=== PATIENT | male | born 1985 | race Caucasian/White ===

== ENCOUNTER 2020-10-01 00:23 | Emergency (ER) | payer SELFPAY ==
[~2020-10-01] VITALS: Ht 172.7 cm; Wt 85.3 kg
[2020-10-01 00:28] VITALS: Ht 172.7 cm; Wt 85.3 kg
[2020-10-01 01:34] VITALS: BP 114/67
== END 2020-10-01 01:34 | disposition home or self-care (01) ==
LOC: ED 00:23
DX: T15.02XA Foreign body in cornea, left eye, initial encounter (principal); F17.210 Nicotine dependence, cigarettes, uncomplicated; Z71.6 Tobacco abuse counseling; W45.8XXA Other foreign body or object entering through skin, initial encounter; Y93.89 Activity, other specified; Y92.89 Other specified places as the place of occurrence of the external cause; Y99.8 Other external cause status
CPT/HCPCS: 90715; 99406

== ENCOUNTER 2020-11-08 20:26 | Emergency (ER) | payer SELFPAY ==
[~2020-11-08] VITALS: Ht 182.9 cm; Wt 222.7 kg
[2020-11-08 21:19] VITALS: Ht 182.9 cm; Wt 222.7 kg
[2020-11-09 00:56] LABS: BASOPHIL % 0.3 % (0-2); PLATELET COUNT 331 x10^3mcL (130-400)
[2020-11-09 01:01] LABS: CALCIUM 8.8 mg/dL (8.5-10.1); CARBON DIOXIDE 32.9 mmol/L (21-32); CREATININE SERUM 1.6 mg/dL (0.7-1.3); POTASSIUM SERUM 5.1 mmol/L (3.5-5.1)
[2020-11-09 01:06] LABS: ALBUMIN 3.4 g/dL (3.4-5.0); BILIRUBIN TOTAL 0.54 mg/dL (0.20-1.00); TOTAL PROTEIN, SERUM 8.1 g/dL (6.4-8.2)
[2020-11-09 01:19] LABS: RED CELL DISTRIBUTION WIDTH 16.7 % (11.5-14.5)
[2020-11-09 01:49] VITALS: BP 132/76
== END 2020-11-09 01:49 | disposition home or self-care (01) ==
LOC: ED 20:26
DX: K85.90 Acute pancreatitis without necrosis or infection, unspecified (principal)
CPT/HCPCS: J1885